=== PATIENT | male | born 1965 | race African-American/Black ===

== ENCOUNTER 2017-08-26 05:17 | Emergency (ER) | payer MEDICAID, OTHER ==
[~2017-08-26] VITALS: Ht 177.8 cm; Wt 95.0 kg
[2017-08-26] MEDS ORDERED: IBUPROFEN 800MG TABLET PO ONE (07:45)
[2017-08-26 08:40] VITALS: BP 125/74
== END 2017-08-26 09:00 | disposition home or self-care (01) ==
LOC: ER 05:17
DX: S00.83XA Contusion of other part of head, initial encounter (principal); E78.00 Pure hypercholesterolemia, unspecified; I10 Essential (primary) hypertension; F17.200 Nicotine dependence, unspecified, uncomplicated; X58.XXXA Exposure to other specified factors, initial encounter
CPT/HCPCS: 99283